=== PATIENT | female | born 1960 | race Caucasian/White ===

== ENCOUNTER 2024-10-26 14:45 | Outpatient (CLI) | payer OTHER, SELFPAY ==
[2024-10-26 18:22] LABS: Hematocrit 38.0 % (37.0-47.0); Hemoglobin 12.7 g/dL (12.2-16.2); Immature Granulocytes % 0.3 %; Mean Corpuscular HGB Conc 33.4 g/dL (31.8-35.4); Mean Corpuscular Hemoglobin 30.0 pg (27.0-31.2); Mean Corpuscular Volume 89.6 fl (81-99); Nucleated Red Blood Cells % 0 %; Platelet Count 222 K/mm3 (142-424); Red Blood Count 4.24 M/mm3 (4.20-5.40); Red Cell Distribution Width-SD 39.2 fL; White Blood Count 5.9 K/mm3 (4.8-10.8)
[2024-10-26 19:23] LABS: Albumin Level 4.8 g/dl (3.5-5.0); Chloride 103 mmol/L (98-107)
[2024-10-26 19:24] LABS: Potassium 4.3 mmoL/L (3.5-5.1); Sodium 139 mmol/L (136-145)
[2024-10-26 19:26] LABS: Alanine Aminotransferase 25 U/L (12-78); Albumin/Globulin Ratio 1.9 (1.1-1.8); Alkaline Phosphatase 50 U/L (38-126); Anion Gap 13.3 mEq/L (5-15); Aspartate Amino Transferase 44 U/L (14-36); Bilirubin,Total 0.8 mg/dl (0.2-1.3); Blood Urea Nitrogen 9 mg/dl (7-17); Carbon Dioxide 27 mmol/L (22.0-30.0); Creatinine,Serum 0.80 mg/dl (0.52-1.04); Estimated Glomerular Filt Rate 72 ml/min (>60); GFR (African American) 87 ML/MIN (>60); Globulin 2.5 g/dL (1.3-3.2); Total Protein,Serum 7.3 g/dl (6.3-8.2)
[2024-10-26 19:27] LABS: Calcium 9.8 mg/dl (8.4-10.2); Cholesterol 140 mg/dl (140-200); Glucose 71 mg/dl (74-100); HDL Cholesterol 60 mg/dl (40-60); Triglycerides 120 mg/dl (30-150)
[2024-10-26 20:18] LABS: Thyroid Stimulating Hormone 0.52 uIU/mL (0.465-4.68)
[2024-10-27 17:23] LABS: Hepatitis C Ab Qual. W/ RFX NEGATIVE (Negative)
[2024-10-28 10:48] LABS: Hep A Ab, Total Positive (Negative); Hep B Core Ab, Total Negative (Negative); Hepatitis B Surface Antigen Negative (Negative)
== END 2024-10-26 23:59 | disposition home or self-care (01) ==
LOC: LAB.DROPOF 10-28 09:50
PROVIDERS: PCP Internal Medicine; Visit Provider Internal Medicine
DX: Z11.4 Encounter for screening for human immunodeficiency virus [HIV] (principal); Z11.59 Encounter for screening for other viral diseases; E03.9 Hypothyroidism, unspecified; K76.0 Fatty (change of) liver, not elsewhere classified; E78.5 Hyperlipidemia, unspecified; Z86.19 Personal history of other infectious and parasitic diseases
CPT/HCPCS: 80053; 80061; 84443; 85025; 86704; 86708; 86803; 87340; 87389

== ENCOUNTER 2024-12-01 08:41 | Outpatient (CLI) | payer MEDICARE, SELFPAY ==
[2024-12-01 11:22] LABS: Iron 86 ug/dL (37-170)
[2024-12-01 11:35] LABS: Total Iron Binding Capacity 276 ug/dL (265-497)
[2024-12-01 12:00] LABS: Ferritin 70.6 ng/ml (11.1-264)
[2024-12-02 00:23] LABS: Vitamin B12 422 pg/mL (239-931)
[2024-12-07 10:27] LABS: ALT (SGPT) P5P 24 IU/L (0-40); AST (SGOT) P5P 35 IU/L (0-40); Alpha 2-Macroglobulins, Qn 279 mg/dL (110-276); Bilirubin, Total 0.2 mg/dL (0.0-1.2); Cholesterol, Total 150 mg/dL (100-199); GGT 11 IU/L (0-60); Glucose 91 mg/dL (70-99); Triglycerides 200 mg/dL (0-149)
== END 2024-12-01 23:59 | disposition home or self-care (01) ==
LOC: LAB 08:43
PROVIDERS: PCP Internal Medicine; Visit Provider Internal Medicine Gastroenterology
DX: K75.81 Nonalcoholic steatohepatitis (NASH) (principal); R94.5 Abnormal results of liver function studies
CPT/HCPCS: 36415; 82103; 82104; 82172; 82247; 82465; 82607; 82652; 82728; 82947; 82977; 83010; 83521; 83540; 83550; 84450; 84460; 84478

== ENCOUNTER 2024-12-08 07:20 | Outpatient (CLI) | payer MEDICARE, SELFPAY ==
--- NOTE | 2024-12-08 07:30 | US_ITS ---
FINAL REPORT TECHNIQUE: Sonographic images of the right upper quadrant were obtained. CLINICAL HISTORY: Elevated liver enzymes-history of SERRANO FINDINGS: PANCREAS: Unremarkable. LIVER: Anechoic lesion in the right lobe of the liver measuring 4.1 cm is consistent with a cyst. Additional smaller lesions are also seen on the right. The portal vein is patent with normal direction of flow. No intrahepatic biliary ductal dilatation. GALLBLADDER: No gallstones. No gallbladder wall thickening or pericholecystic fluid. COMMON DUCT: 5 mm. Normal for age. RIGHT KIDNEY: The right kidney measures 8.7 cm. There is no hydronephrosis, mass, or stone. FREE FLUID: None. IMPRESSION: Hepatic cysts. Otherwise, unremarkable exam. Reviewed, Interpreted and Dictated by Zoya Delgado MD Transcribed by Aniya Palm Authenticated and . [facility]
== END 2024-12-08 23:59 | disposition home or self-care (01) ==
LOC: RAD 07:21
PROVIDERS: PCP Internal Medicine; Visit Provider Internal Medicine Gastroenterology
DX: K76.89 Other specified diseases of liver (principal); K75.81 Nonalcoholic steatohepatitis (NASH); R94.5 Abnormal results of liver function studies
CPT/HCPCS: 76705

== ENCOUNTER 2024-12-22 07:48 | Outpatient (CLI) | payer MEDICARE, SELFPAY ==
--- NOTE | 2024-12-22 08:00 | MM_ITS ---
PROCEDURE INFORMATION: Exam: Bilateral Screening 3D Mammography Exam date and time: 12/22/2024 8:01 AM Age: 64 years old Clinical indication: Screening mammogram TECHNIQUE: Imaging protocol: Bilateral Screening tomosynthesis and 2D mammography including computer-aided detection (CAD) when performed. COMPARISON: No relevant prior studies available. FINDINGS: MAMMOGRAPHY: Breast composition: There are scattered areas of fibroglandular density. Mass: 1 cm mass within the 6 o'clock left middle 1/3, approximately 6 cm from the nipple should be further assessed with spot views in CC/MLO projection. Ultrasound should also be scheduled. Architectural distortion: No new or suspicious architectural distortion. Calcifications: No new or suspicious calcifications are present Asymmetric density: No new or suspicious asymmetric density is present Skin thickening: None. Axillary adenopathy: None. Other findings: There is a left-sided loop recorder device. IMPRESSION: 1 cm mass within the 6 o'clock left middle 1/3, approximately 6 cm from the nipple should be further assessed with spot views in CC/MLO projection. Ultrasound should also be scheduled. ASSESSMENT: BI-RADS Category 0: Incomplete - Need Additional Imaging Evaluation
== END 2024-12-22 23:59 | disposition home or self-care (01) ==
LOC: RAD 07:48
PROVIDERS: PCP Internal Medicine; Visit Provider Internal Medicine
DX: Z12.31 Encounter for screening mammogram for malignant neoplasm of breast (principal); N63.25 Unspecified lump in the left breast, overlapping quadrants; R92.323 Mammographic fibroglandular density, bilateral breasts
CPT/HCPCS: 77063; 77067